=== PATIENT | female | born 1970 | race Caucasian/White ===

== ENCOUNTER 2017-12-17 13:22 | Emergency (ER) | payer OTHER, BC ==
[2017-12-17] MEDS: predniSONE 20 MG TAB PO (14:57)
[2017-12-17] MEDS: LEVALBUTEROL (NEB) 1.25 MG/0.5 ML AMP HHN (15:19)
[2017-12-17] MEDS: IPRATROPIUM (NEB) 0.5 MG/2.5 ML AMP HHN (15:19)
== END 2017-12-17 16:21 | disposition home or self-care (01) ==
LOC: FTE 13:22
DX: J45.901 Unspecified asthma with (acute) exacerbation (principal); J20.9 Acute bronchitis, unspecified
CPT/HCPCS: 71045; 94664; 99284-25

== ENCOUNTER 2019-07-22 14:52 | Emergency (ER) | payer OTHER ==
[2019-07-22] MEDS: DIPHTH/TET/ACEL PERTUSS (ADULT) 0.5 ML VIAL IM* (16:14)
== END 2019-07-22 17:19 | disposition home or self-care (01) ==
LOC: FTE 14:52
DX: S61.211A Laceration without foreign body of left index finger without damage to nail, initial encounter (principal); W26.0XXA Contact with knife, initial encounter; Y92.9 Unspecified place or not applicable; Z23 Encounter for immunization
CPT/HCPCS: 12001; 90471; 90715; 99283-25